=== PATIENT | male | born 1945 | race Caucasian/White ===

== ENCOUNTER 2016-07-16 15:22 | Emergency (ER) | payer MEDICARE ==
--- NOTE | 2016-07-19 18:24 | ER ---
ADMIT: 07/16/2016 RM/LOC: [facility] MR#: [id number] [facility] [address] [place] [id number] [place] [address] Emergency Room Report SEX: M AGE: 70 : 1945 DATE: 07/16/2016 TIME: 1522 hours. [facility] Please refer to my T-sheet for complete H and P. HISTORY OF PRESENT ILLNESS: Briefly, the patient is a 70-year-old, transferred from the [facility]. It is a little hard to tell exactly why. He went in for routine appointment because [facility]. He was recently in the last couple of weeks, diagnosed with atrial fibrillation. He is on Cardizem. They have increased it from 120 to 240. He is also on anticoagulation. He has no complaints is what he tells me. [facility] felt a [facility] bit winded, maybe with a long walk and when they checked, his pulses ran up to as high as 130 he said but again he had no other complaints, said he feels fine and he was transferred by ambulance here with lab work that was all normal. PHYSICAL EXAMINATION: VITAL SIGNS: Here his blood pressure is a little bit elevated at 149/112, but I had a long discussion with him for that he had this, pulse 90-105, respirations 14, temp 97.4, sat 93%. GENERAL: He is in no acute distress. HEENT: Grossly normal. LUNGS: Clear. HEART: Irregularly regular, pulse around 90. ABDOMEN: Soft. SKIN: No rash. EMERGENCY ROOM COURSE: I reviewed his labs and looked okay including CBC and chemistries. His rhythm strip here, again he was in the 90s to 100s. I gave him an extra dose of Cardizem, so an extra 120 of the extended release and we are going to discharge him. He can go back to [facility] the [facility] as needed. ASSESSMENT: Atrial fibrillation with fair control, recently diagnosed, increased from 120 to 240, now we will go up to 360 a day on his Cardizem. PLAN: [facility] and return as needed. Cole David MD/ bolivar JOB #: [id number] CC: Cole David MD, Attending Physician [facility] Physician, Family Physician
== END 2016-07-16 15:40 | disposition home or self-care (01) ==
LOC: ER 15:22
DX: I48.91 Unspecified atrial fibrillation (principal); Z87.891 Personal history of nicotine dependence; Z85.038 Personal history of other malignant neoplasm of large intestine